=== PATIENT | female | born 1940 | race Caucasian/White ===

== ENCOUNTER 2018-07-25 13:49 | Inpatient (IN) | payer OTHER, MEDICAID ==
[~2018-07-25] VITALS: Ht 157.5 cm; Wt 41.0 kg
[2018-07-25 14:56] LABS: CALCIUM 8.2 mg/dL (8.5-10.1); CARBON DIOXIDE 25.3 mmol/L (21-32); CHLORIDE SERUM 100 mmol/L (98-107); CREATININE SERUM 3.2 mg/dL (0.6-1.0); GLUCOSE SERUM 350 mg/dL (74-106); POTASSIUM SERUM 4.1 mmol/L (3.5-5.1); SODIUM SERUM 133 mmol/L (136-145)
[2018-07-25 14:59] LABS: BASOPHIL % 0.5 % (0-2); PLATELET COUNT 178 x10^3mcL (130-400); RED CELL DISTRIBUTION WIDTH 14.9 % (11.5-14.5)
[2018-07-25 15:01] LABS: ALBUMIN 2.6 g/dL (3.4-5.0); ALKALINE PHOSPHATASE 314 U/L (46-116); ALT/SGPT 48 U/L (14-59); AST/SGOT 39 U/L (15-37); BILIRUBIN TOTAL 0.3 mg/dL (0.20-1.00); TOTAL PROTEIN, SERUM 7.3 g/dL (6.4-8.2)
[2018-07-25] MEDS ORDERED: SODIUM BICARBO325 MG PO (15:54)
[2018-07-25] MEDS ORDERED: TRIUMEQ1 TAB PO (15:55)
[2018-07-25] MEDS ORDERED: NOR5 PO (15:56)
[2018-07-25] MEDS ORDERED: ATA25 (15:57)
[2018-07-25] MEDS ORDERED: LEVOTHYROXIN0.125 M2 PO (15:58)
[2018-07-25] MEDS ORDERED: GLUCOTROL5 MG (16:00)
[2018-07-25] MEDS ORDERED: CARVEDILOL6.25 M1 (16:00)
[2018-07-25 16:49] LABS: MAGNESIUM 2.9 mg/dL (1.8-2.4); PHOSPHOROUS 4.8 mg/dL (2.5-4.9)
[2018-07-25 16:52] LABS: CHOLESTEROL/HDL RATIO 4.6
[2018-07-25 16:59] LABS: T3 TOTAL 0.66 ng/mL
[2018-07-25 17:06] LABS: UA SPECIFIC GRAVITY 1.015 (1.005-1.035); microscopic required? YES; urine erythrocyte 1+ (NEGATIVE)
[2018-07-25 17:12] LABS: FREE T4 1.49 ng/dL (0.76-1.46); FREE THYROXINE INDEX 3.6 ug/dL (1.4-4.5); T4(THYROXINE) 10.2 ug/dL (4.7-13.3)
[2018-07-25 17:45] VITALS: BP 121/61
[2018-07-25 17:55] VITALS: Ht 157.5 cm; Wt 41.0 kg
[2018-07-25 18:18] VITALS: BP 157/74
[2018-07-25 19:36] LABS: AMPHETAMINE QUAL UR NONE DETECTED (See below)
[2018-07-25 19:39] LABS: IRON 70 ug/dL (50-170)
[2018-07-25 19:44] LABS: TOTAL IRON BINDING CAPACITY 177 ug/dL (250-450)
[2018-07-25 20:26] VITALS: BP 193/71
[2018-07-25 22:54] VITALS: BP 138/50
[2018-07-26 06:33] LABS: CALCIUM 7.9 mg/dL (8.5-10.1); CARBON DIOXIDE 21.3 mmol/L (21-32); CHLORIDE SERUM 111 mmol/L (98-107); CREATININE SERUM 2.9 mg/dL (0.6-1.0); GLUCOSE SERUM 134 mg/dL (74-106); MAGNESIUM 3.3 mg/dL (1.8-2.4); POTASSIUM SERUM 4.5 mmol/L (3.5-5.1); SODIUM SERUM 144 mmol/L (136-145)
[2018-07-26 07:04] LABS: BASOPHIL % 0.6 % (0-2); PLATELET COUNT 173 x10^3mcL (130-400)
[2018-07-26 07:09] LABS: RED CELL DISTRIBUTION WIDTH 15.1 % (11.5-14.5)
[2018-07-26 08:35] VITALS: BP 169/60
[2018-07-26 12:24] VITALS: BP 128/47
[2018-07-26 16:22] VITALS: BP 152/59
[2018-07-26 20:34] VITALS: BP 158/49
[2018-07-27 05:27] VITALS: BP 156/49
[2018-07-27 05:46] LABS: BASOPHIL % 0.6 % (0-2); PLATELET COUNT 173 x10^3mcL (130-400)
[2018-07-27 06:17] LABS: CALCIUM 7.6 mg/dL (8.5-10.1); CARBON DIOXIDE 22.1 mmol/L (21-32); CHLORIDE SERUM 112 mmol/L (98-107); CREATININE SERUM 2.9 mg/dL (0.6-1.0); GLUCOSE SERUM 208 mg/dL (74-106); POTASSIUM SERUM 5.3 mmol/L (3.5-5.1); SODIUM SERUM 143 mmol/L (136-145)
[2018-07-27 08:57] VITALS: BP 168/70
[2018-07-27 14:05] VITALS: BP 170/63
[2018-07-27] MEDS ORDERED: LANTUS SOLOS100 U/M1 SQ (14:07)
[2018-07-27] MEDS ORDERED: ENSURE GLUCERN237 ML PO (14:08)
[2018-07-27] MEDS ORDERED: NOR10 PO (14:25)
[2018-07-27 15:05] VITALS: BP 173/68
[2018-07-27 15:27] VITALS: BP 153/63
[2018-07-27 15:32] VITALS: BP 153/63
== END 2018-07-27 16:35 | disposition home or self-care (01) | DRG 682 ==
LOC: ED 13:49 → DU 16:09
PROVIDERS: Emergency Medicine; General Practice
DX: N17.0 Acute kidney failure with tubular necrosis (principal); E43 Unspecified severe protein-calorie malnutrition; D68.69 Other thrombophilia; G90.9 Disorder of the autonomic nervous system, unspecified; R55 Syncope and collapse; I16.0 Hypertensive urgency; E11.65 Type 2 diabetes mellitus with hyperglycemia; E11.22 Type 2 diabetes mellitus with diabetic chronic kidney disease; E83.41 Hypermagnesemia; I12.9 Hypertensive chronic kidney disease with stage 1 through stage 4 chronic kidney disease, or unspecified chronic kidney disease; N18.9 Chronic kidney disease, unspecified; I25.10 Atherosclerotic heart disease of native coronary artery without angina pectoris; J44.9 Chronic obstructive pulmonary disease, unspecified; D63.1 Anemia in chronic kidney disease; Z79.84 Long term (current) use of oral hypoglycemic drugs
CPT/HCPCS: 36600; 82962; 84439; 97110-GP; 97530-GP; J0360; J0696; J1815; J2405; J3475; J3490; J7030; J7620; Q0092

== ENCOUNTER 2018-08-25 18:59 | Inpatient (IN) | payer OTHER, MEDICAID ==
[~2018-08-25] VITALS: Ht 157.5 cm; Wt 36.3 kg
[~2018-08-25 18:59] MED LIST: ATA25; CARVEDILOL6.25 M1; ENSURE GLUCERN237 ML PO; GLUCOTROL5 MG; LANTUS SOLOS100 U/M1 SQ; LEVOTHYROXIN0.125 M2 PO; NOR10 PO; NOR5 PO; SODIUM BICARBO325 MG PO; TRIUMEQ1 TAB PO
[2018-08-25 19:12] VITALS: Ht 157.5 cm; Wt 36.3 kg
[2018-08-25 20:17] LABS: BASOPHIL % 0.3 % (0-2); PLATELET COUNT 198 x10^3mcL (130-400)
[2018-08-25 20:18] LABS: RED CELL DISTRIBUTION WIDTH 15.7 % (11.5-14.5)
[2018-08-25 20:26] LABS: CALCIUM 7.7 mg/dL (8.5-10.1); CARBON DIOXIDE 16.7 mmol/L (21-32); CHLORIDE SERUM 110 mmol/L (98-107); CREATININE SERUM 3.1 mg/dL (0.6-1.0); GLUCOSE SERUM 255 mg/dL (74-106); POTASSIUM SERUM 3.3 mmol/L (3.5-5.1); SODIUM SERUM 137 mmol/L (136-145)
[2018-08-25 20:33] LABS: ALKALINE PHOSPHATASE 517 U/L (46-116); ALT/SGPT 125 U/L (14-59); AST/SGOT 157 U/L (15-37); TOTAL PROTEIN, SERUM 7.1 g/dL (6.4-8.2)
[2018-08-25 20:37] LABS: ALBUMIN 2.5 g/dL (3.4-5.0)
[2018-08-25 21:19] LABS: UA SPECIFIC GRAVITY 1.025 (1.005-1.035); microscopic required? YES; urine erythrocyte 2+ (NEGATIVE)
[2018-08-25 23:27] VITALS: BP 118/66
[2018-08-25 23:46] LABS: MAGNESIUM 2.9 mg/dL (1.8-2.4); PHOSPHOROUS 3.8 mg/dL (2.5-4.9)
[2018-08-26 04:53] VITALS: BP 142/50
[2018-08-26 05:40] LABS: BASOPHIL % 0.4 % (0-2); PLATELET COUNT 190 x10^3mcL (130-400)
[2018-08-26 05:43] LABS: RED CELL DISTRIBUTION WIDTH 15.4 % (11.5-14.5)
[2018-08-26 06:45] LABS: CALCIUM 7.8 mg/dL (8.5-10.1); CARBON DIOXIDE 18.6 mmol/L (21-32); CHLORIDE SERUM 114 mmol/L (98-107); CREATININE SERUM 2.8 mg/dL (0.6-1.0); GLUCOSE SERUM 169 mg/dL (74-106); POTASSIUM SERUM 3.7 mmol/L (3.5-5.1); SODIUM SERUM 141 mmol/L (136-145)
[2018-08-26 08:27] VITALS: BP 136/55
[2018-08-26 16:54] VITALS: BP 144/42
[2018-08-26 20:24] VITALS: BP 147/53
[2018-08-27 05:36] VITALS: BP 152/78
[2018-08-27 06:47] LABS: BASOPHIL % 0.4 % (0-2); PLATELET COUNT 220 x10^3mcL (130-400)
[2018-08-27 07:14] LABS: RED CELL DISTRIBUTION WIDTH 15.8 % (11.5-14.5)
[2018-08-27 07:23] LABS: CALCIUM 7.7 mg/dL (8.5-10.1); CARBON DIOXIDE 17.9 mmol/L (21-32); CHLORIDE SERUM 112 mmol/L (98-107); CREATININE SERUM 2.8 mg/dL (0.6-1.0); GLUCOSE SERUM 85 mg/dL (74-106); MAGNESIUM 2.8 mg/dL (1.8-2.4); PHOSPHOROUS 3.5 mg/dL (2.5-4.9); POTASSIUM SERUM 3.5 mmol/L (3.5-5.1); SODIUM SERUM 140 mmol/L (136-145)
[2018-08-27 08:07] VITALS: BP 171/55
[2018-08-27 11:45] VITALS: BP 170/54
[2018-08-27 13:15] VITALS: BP 151/44
[2018-08-27 15:02] VITALS: BP 151/44
[2018-08-27] MEDS ORDERED: REM15 PO (15:24)
== END 2018-08-27 15:47 | disposition home or self-care (01) | DRG 73 ==
LOC: ED 18:59 → MU 22:09
PROVIDERS: Emergency Medicine; Family Medicine
DX: G90.8 Other disorders of autonomic nervous system (principal); E43 Unspecified severe protein-calorie malnutrition; N17.0 Acute kidney failure with tubular necrosis; G93.41 Metabolic encephalopathy; Z68.1 Body mass index [BMI] 19.9 or less, adult; D68.69 Other thrombophilia; N18.5 Chronic kidney disease, stage 5; I12.0 Hypertensive chronic kidney disease with stage 5 chronic kidney disease or end stage renal disease; B34.9 Viral infection, unspecified; E87.6 Hypokalemia; I16.0 Hypertensive urgency; E11.65 Type 2 diabetes mellitus with hyperglycemia; E11.22 Type 2 diabetes mellitus with diabetic chronic kidney disease; R80.9 Proteinuria, unspecified; D63.1 Anemia in chronic kidney disease; E83.41 Hypermagnesemia; Z87.891 Personal history of nicotine dependence
CPT/HCPCS: 82962; 83880; 87804; J1644; J1815; J3490; J7030; Q0092